=== PATIENT | female | born 1945 | race Caucasian/White ===

== ENCOUNTER 2021-12-25 06:36 | Observation (INO) | payer OTHER ==
[2021-12-20 09:28] LABS: Absolute Lymphocytes (CBC) 1.1 K/uL (0.7-4.9); Hematocrit 41.8 % (36.0-45.0); Lymphocytes % 22.6 % (15.3-44.8); MPV 10.5 fL (7.6-11.3); RBC Red Blood Cell Count 4.64 M/uL (3.86-4.86)
[2021-12-20 09:35] LABS: Protime INR 1.07
--- NOTE | 2021-12-20 09:59 | RAD REPORT ---
EXAM DESCRIPTION: RAD - Chest Pa And Lat (2 Views) - 12/20/2021 9:21 am CLINICAL HISTORY: Pre Op pending knee arthroplasty Chest pain. COMPARISON: No comparisons FINDINGS: The lungs are clear. The heart is normal in size. No displaced fractures. Large hiatal her vamshi.
[2021-12-25] MEDS ORDERED: Ringers Lactate 1,000 ML IV ONE ×2 (06:44→09:59)
[2021-12-25] MEDS ORDERED: BUPIVACAINE 0.25% PF 10 ML VIAL ONE (06:45)
[2021-12-25] MEDS ORDERED: MIDAZOLAM HCL 2 MG/2 ML INJ ONE (06:46)
[2021-12-25] MEDS ORDERED: LIDOCAINE 1% MPF 5 ML VIAL ONE (06:46)
[2021-12-25] MEDS ORDERED: FENTANYL CITR 100 MCG/2 ML ONE ×2 (06:46→08:55)
[2021-12-25] MEDS ORDERED: dexAMETHasone 4 MG/ML VIAL ONE (06:46)
[2021-12-25] MEDS ORDERED: LIDOCAINE 2% MPF 5 ML VIAL ONE (07:06)
[2021-12-25] MEDS ORDERED: propofoL 200 MG/20 ML VIAL IV ONE (07:06)
[2021-12-25] MEDS ORDERED: ACETAMINOPHEN 500 MG TAB ONE (07:10)
[2021-12-25] MEDS ORDERED: CELECOXIB 100 MG CAPSULE ONE (07:10)
[2021-12-25] MEDS ORDERED: VANCOMYCIN 1 GM in NA CHLORIDE 0.9% 250 ML IV ONE (08:00)
[2021-12-25] MEDS ORDERED: HYDROMORPHONE HCL 1 MG/ML INJ ONE (08:20)
[2021-12-25] MEDS ORDERED: KETAMINE HCL 500 MG/5 ML VIAL ONE (08:28)
[2021-12-25] MEDS ORDERED: ONDANSETRON 4 MG/2 ML VIAL ONE (08:30)
[2021-12-25] MEDS ORDERED: EPHEDRINE SULF 50 MG/ML VIAL ONE (08:33)
[2021-12-25] MEDS ORDERED: TRANEXAMIC ACID 1,000 MG in NA CHLORIDE 0.9% 50 ML IV ONE (09:00)
--- NOTE | 2021-12-25 10:45 | P.BOP ---
Preoperative diagnosis: left knee osteoarthritis Postoperative diagnosis: same Primary procedure: left total knee arthroplasty Customer Support Professional: NONE,NONE Estimated blood loss: 20 cc Specimen: left knee bone remnants Findings: see dictation Anesthesia: General Complications: None Implants: [employer] Roseann Persona 10 CR Narrow Femur, E tibia, 32 patella, 10 CR poly Fluids & blood products: per anesthesia record; TT: 71 mins @ 300 mmHg Transferred to: Recovery Room Condition: Good
[2021-12-25] MEDS ORDERED: SIMETHICONE 80 MG TAB PO PRN (10:46)
[2021-12-25] MEDS ORDERED: DOCUSATE NA 100 MG CAP PO PRN (10:47)
[2021-12-25] MEDS ORDERED: ONDANSETRON 4 MG/2 ML VIAL IV PRN (10:47)
[2021-12-25] MEDS ORDERED: MORPHINE 2 MG/ML SYR IV PRN (10:47)
[2021-12-25] MEDS ORDERED: TRAMADOL HCL 50 MG TAB PO PRN (10:52)
[2021-12-25 11:10] LABS: Hematocrit 34.1 % (36.0-45.0)
--- NOTE | 2021-12-25 11:24 | RAD REPORT ---
EXAM DESCRIPTION: RAD - Knee Left 2 View - 12/25/2021 11:11 am CLINICAL HISTORY: Left knee surgery FINDINGS: Postoperative changes a left knee arthroplasty. Prosthesis is in good position. No fracture or dislocation
--- OUTSIDE RECORDS SUMMARY | 2021-12-25 11:50 | XMS REPORT | Continuity of Care Document ---
:1945 Author Organization [facility] t Address [address] [place] [address] [address]. Trejo [address] [place] [address] Care Team Providers Name Role Phone Moises Henderson DO Primary Care Physician Madison Henderson Attending Clinician Unavailable SINTIA Attending Clinician Unavailable Viet Torrez Attending Clinician Unavailable RYAN DELA CRUZ Attending Clinician Unavailable Nurse, Pob Immunization Attending Clinician Unavailable Ryan Dela Cruz DO Attending Clinician Madison TURK Attending Clinician Unavailable Doctor Unassigned, Name Attending Clinician Unavailable Francisco Stubbs MD Attending Clinician Madison Henderson Admitting Clinician Unavailable Viet Torrez Admitting Clinician Unavailable Physician, Primary or Family Admitting Clinician Unavailabl e Payers Payer Name Policy Type Policy Number Effective Date Expiration Date S cortney MEDICARE PART A \T\ [id number] B - MEDICARE MEDIGAP-GENERIC - [id number] GENERIC PAYOR MEDICARE SUPPLEMENT [id number] MEDICARE PART A \T\ [id number] 2009 B 00:00:00 COMMERCIAL [id number] 2014 NON-CONTRACT 00:00:00 GENERIC Problems Condition Condition Condition Status Onset Resolution Last Treating Co mments Source Name Details Category Date Date Treatment Clinician Date 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 of 05 ity of lower lower 00:00: [place] extremity extremity 00 Medi jose Branch Osteoarthr Osteoarthr Disease Active 2018-11 U nivers itis itis 05 ity of 00:00: [place] 00 Medical Branch Allergies, Adverse Reactions, Alerts Allergy Allergy Status Severity Reaction(s) Onset Inactive Treating Comm ents Source Name Type Date Date Clinician Nitrofur Propensi Active Other (See Ba ylor antoin ty to Comments) 2-10 [place] Mac[place]ry adverse 00:00: of stal reaction 00 Medicin s to e drug Nitrofur Propensi Active 2016-11 Method i antoin ty to 0-23 [facility] [place] adverse 00:00: Hospita stal reaction 00 l s to drug Penicill Propensi Active 2016-11 Method i ins ty to 0-23 st adverse 00:00: Hospita reaction 00 l s to drug Sulfa Propensi Active 2016-11 Methodi (Sulfona ty to 0-23 st mide adverse 00:00: Hospita Antibiot reaction 00 l ics) s to drug NITROFUR DRUG Active Hives Univers ANTOIN INGREDI 5-31 ity of MACROCRY 00:00: [place] STALLINE 00 Medical Branch PENICILL Drug Active Hives Univers INS Class 5-31 ity of 00:00: [place] 00 Medical Branch SULFA Drug Active Hives Univers (SULFONA Class 5-31 ity of MIDE 00:00: [place] ANTIBIOT 00 Medical ICS) Branch Nitrofur Propensi Active Hives Univer s antoin ty to 5-31 ity of Macrocry adverse 00:00: [place] stalline reaction 00 Medica l s Branch Penicill Propensi Active Hives Univer s ins ty to 5-31 ity of adverse 00:00: [place] reaction 00 Medical s Branch Sulfa Propensi Active Hives Univers (Sulfona ty to 5-31 ity of mide adverse 00:00: [place] Antibiot reaction 00 Medica l ics) s Branch Penicill Propensi Active Hives [facility] ins ty to 04-08 [place] adverse 00:00: of reaction 00 Medicin s to e drug Sulfa Propensi Active Hives [facility] Antibiot ty to 04-08 [place] ics adverse 00:00: of reaction 00 Medicin s to e drug Macrodan Adverse Active Info Not [facility] Reaction Available [facility] Family History Family Member Diagnosis Comments Start Date Stop Date Source Natural father Heart disease [facility] Natural mother Stroke [facility] Social History Social Habit Start Date Stop Date Quantity Comments Source Exposure to Yes [facility] Cjg e SARS-CoV-2 (event) of Med icine History [facility] ge Alcohol Comment of Medici ne History [facility] ge Alcohol Std Drinks of Med icine History [facility] Alcohol Binge of Medicine Alcohol intake 2021-11-27 2021-11-27 Current drinker [facility] 00:00:00 00:00:00 of alcohol of Medicine (finding) Tobacco use and 2020-03-21 2020-03-21 Smokeless tobacco [facility] exposure 00:00:00 00:00:00 non-user of Medicine History [facility] 2020-03-21 2020-03-21 3 [facility] Alcohol Frequency 00:00:00 00:00:00 of Medi cine Cigarettes smoked 2017-08-31 2017-08-31 [facility] current (pack per 00:00:00 00:00:00 Hospita l day) - Reported Cigarette 2017-08-31 2017-08-31 [facility] pack-years 00:00:00 00:00:00 Hospital Sex Assigned At [birth year] [facility] Co [facility]lege 00:00:00 00:00:00 of Medicine Smoking Status Start Date Stop Date Source Never smoked tobacco [facility] ege of [facility] Current every day smoker 2017-08-31 00:00:00 Met [facility] Medications Ordered Filled Start Stop Current Ordering Indication Dosage Frequency Signature Comments Components Source Medication Medication Date Date Medication? Clinician (SIG) Name Name Cyclobenzap 2021- No Take by Jules carmonae HCl 11-27 mouth. College (FLEXERIL 09:56: 00:00 of OR) 12 :00 Medicin e cyclobenzap 2021- No 10mg Take 10 mg Kody stallworth 11-27 by mouth 3 College (FLEXERIL) 09:55: 00:00 times of 10 MG 42 :00 daily as Medicin tablet needed for e Muscle spasms. Magnesium 0 Yes 250mg 250 mg. [facility] 400 MG CAPS 11-27 College 09:06: of 45 Medicin e aspirin EC 0 Yes 81mg Take 81 mg B aylor 81 MG 11-27 by mouth. [place] tablet 09:06: of 45 Medicin e Cyanocobala 2021-0 Yes 1 tablet Ba ylor min 11-27 [place] (VITAMIN 09:06: of B12) 1000 45 Medicin MCG TBCR e Probiotic 0 Yes Take by [facility] Product 11-27 mouth. [place] (PROBIOTIC 09:06: of PEARLS OR) 45 Medicin e Calcium 0 Yes Take by Kody Carbonate-[facility] 11-27 [facility] 09:06: of (CALCIUM 45 Medicin 600+D3 PLUS e MINERALS OR) nortriptyli Yes [id number] 25mg Take 1 [facility] ne 11-27 capsule by [place] (PAMELOR) 00:00: mouth of 25 MG 00 nightly. Medicin capsule e Probiotic 2019-0 Yes Take by [facility] Product 03-21 mouth. [place] (PROBIOTIC 18:51: of PEARLS OR) 33 Medicin e Calcium 2019-0 Yes Take by [facility] Carbonate-V 03-21 [facility]. [facility] 18:51: of (CALCIUM 33 Medicin 600+D3 PLUS e MINERALS OR) Magnesium 2020-0 Yes 250mg 250 mg. [facility] ([facility] TRIPLE 03-21 [place] MAGNESIUM 18:50: of COMPLEX) 29 Medicin 400 MG CAPS e aspirin EC 2019-0 Yes 81mg Take 81 mg B aylor 81 MG 03-21 by mouth. [place] tablet 18:50: of 29 Medicin e Cyanocobala 2020-0 Yes 1 tablet Ba ylor min 03-21 [place] (VITAMIN 18:50: of B12) 1000 29 Medicin MCG TBCR e Cyclobenzap 2020-0 Yes Take by Ba ylor rine HCl 03-21 mouth. [place] (FLEXERIL 18:50: of OR) 29 Medicin e cyclobenzap 2020-0 Yes 10mg Take 10 mg [facility] rine -13 by mouth 3 [place] (FLEXERIL) 18:50: times of 10 MG 29 daily as Medicin tablet needed for e Muscle spasms. alprazolam 2020-0 Yes [id number] .5mg Take 1 Tab Kody (XANAX) 0.5 5-13 by mouth [facility] ege MG tablet 00:00: See Admin of 00 Instructio Medicin ns. 1 hour e prior to MRI. May repeat at start of MRI if still claustroph obic. alprazolam 2020-0 2021- No [id number] .5mg Take 1 Tab Kody (XANAX) 0.5 5-13 -19 by mouth Col lege MG tablet 00:00: 00:00 See Admin of 00 :00 Instructio Medicin ns. 1 hour e prior to MRI. May repeat at start of MRI if still claustroph obic. losartan-hy 2020-0 Yes daily. [facility] drochloroth 4- [place] iazide 00:00: of (HYZAAR) 00 Medicin 100-25 MG e per tablet losartan-hy 2020-0 Yes daily. [facility] drochloroth 4- [place] iazide 00:00: of (HYZAAR) 00 Medicin 100-25 MG e per tablet Mesalamine 2020-0 Yes [facility] 1.2 g TBEC 4-19 College 00:00: of 00 Medicin e Mesalamine 2020-0 Yes 4{tbl} 4 Tablets [facility] 1.2 g TBEC 19 daily. College 00:00: of 00 Medicin e DEXILANT 60 2020-0 Yes Kody MG CPDR 4-12 College 00:00: of 00 Medicin e DEXILANT 60 2020-0 Yes [facility] MG CPDR 4-12 College 00:00: of 00 Medicin e simvastatin 2020-0 Yes daily. [facility] (ZOCOR) 40 3-15 College MG tablet 00:00: of 00 Medicin e simvastatin 2020-0 Yes daily. [facility] (ZOCOR) 40 3-15 College MG tablet 00:00: of 00 Medicin e potassium 2020-0 Yes [facility] chloride SA 2-24 College (K-DUR, 00:00: of KLOR-CON Medicin M20) 20 MEQ e tablet potassium 2020-0 Yes [facility] chloride SA 2-24 College (K-DUR, 00:00: of KLOR-CON Medicin M20) 20 MEQ e tablet Tramadol Tramadol 2018-11 Yes Anthony [address] HCl HCl 12-04 [facility] l Outpati ent Clinics mesalamine 2018-11 Yes 1200mg Take 1,200 Univers 1.2 gram EC 1-05 mg by ity of tablet 14:50: mouth [place] 06 daily with Medical breakfast. Branch mesalamine 2018-11 Yes 1200mg Take 1,200 Univers 1.2 gram EC 1-05 mg by ity of tablet 14:50: mouth [place] 06 daily with Medical breakfast. Branch mesalamine 2016-11 Yes Methodi (LIALDA) 0-16 st 1.2 gram EC 00:00: Hospit a tablet 00 l budesonide 2016-11 Yes [facility] EC 0-06 st (ENTOCORT 00:00: Hospita EC) 3 mg 24 00 l hr capsule DEXILANT 60 Yes Method i mg capsule 08-04 st 00:00: Hospita 00 l doxazosin Yes take one [facility] (CARDURA) 8 9-18 tablet by Col lege MG tablet 00:00: mouth of 00 daily Medicin e losartan-hy Yes Method i drochloroth 918 st iazide 00:00: Hospita (HYZAAR) 00 l 100-25 mg per tablet doxazosin Yes take one [facility] (CARDURA) 8 9-18 tablet by Col lege MG tablet 00:00: mouth of 00 daily Medicin e doxazosin Yes Methodi (CARDURA) 8 9-18 st MG tablet 00:00: Hospita 00 l losartan-hy Yes 1{tbl} Take 1 Un [place]anto drochloroth 5-31 tablet by ity of iazide 23:05: mouth [place] 100-25 mg 26 daily. Medical per tablet Branch simvastatin Yes 40mg Take 40 mg Univers 40 mg 5-31 by mouth ity of tablet 23:05: at [place] [address] bedtime. Medical Branch aspirin 81 Yes 81mg Take 81 mg U nivers mg chewable 5-31 by mouth ity of tablet 23:05: daily. [place] [facility] [place]-3-DHA Yes Take by Un [place]anto -EPA-Fish 5-31 mouth. ity of Oil (FISH 23:05: [place] OIL) 1,000 26 Medical mg (120 Branch mg-180 mg) Cap CALCIUM Yes Take by [facility] s CARBONATE/V 5-31 mouth. ity of ITAMIN D3 23:05: [place] (VITAMIN 26 Medical D-3 ORAL) Branch doxazosin 8 Yes 8mg Take 8 mg U nivers mg tablet 5-31 by mouth ity of 23:05: daily. [place] [address] Medical Branch Dexlansopra Yes Take by Un [facility]anto zole 5-31 mouth. ity of (DEXILANT) 23:05: [place] 60 mg 26 Medical capsule Branch cyclobenzap Yes 10mg Take 10 mg Univers rine 10 mg 5-31 by mouth 3 ity of tablet 23:05: (three) [place] 26 times Medical daily. Branch POTASSIUM Yes Take by [facility] ers CHLORIDE - mouth. ity of (KLOR-CON 23:05: [place] ORAL) Medical Branch losartan-hy Yes 1{tbl} Take 1 Un [place] drochloroth 5-31 tablet by ity of iazide 23:05: mouth [place] 100-25 mg 26 daily. Medical per tablet Branch simvastatin Yes 40mg Take 40 mg Univers 40 mg 5-31 by mouth ity of tablet 23:05: at [place] [address] bedtime. Medical Branch aspirin 81 Yes 81mg Take 81 mg U nivers mg chewable 5-31 by mouth ity of tablet 23:05: daily. [place] [address] Medical Branch [place]-3-DHA Yes Take by Un [place]anto -EPA-Fish - mouth. ity of Oil (FISH 23:05: [place] OIL) 1,000 26 Medical mg (120 Branch mg-180 mg) Cap CALCIUM Yes Take by [facility] s CARBONATE/V 5-31 mouth. ity of ITAMIN D3 23:05: [place] (VITAMIN 26 Medical D-3 ORAL) Branch doxazosin 8 Yes 8mg Take 8 mg U nivers mg tablet 5-31 by mouth ity of 23:05: daily. [place] [address] Medical Branch Dexlansopra Yes Take by Un [place]anto zole 5-31 mouth. ity of (DEXILANT) 23:05: [place] 60 mg 26 Medical capsule Branch cyclobenzap Yes 10mg Take 10 mg Univers rine 10 mg 5-31 by mouth 3 ity of tablet 23:05: (three) [place] 26 times Medical daily. Branch POTASSIUM 2017-0 Yes Take by Univ ers CHLORIDE 5-31 mouth. ity of (KLOR-CON 23:05: [place] ORAL) 26 Medical Branch Lialda Lialda Yes Anthony [address] [facility]ics Cyclobenzap Cyclobenzap Yes Anthony [address] rine HCl rine HCl [facility] as needed [facility] ent Clinics Dexilant Dexilant Yes Anthony TAKE ONE C [facility] CAPSULE BY [facility] DAILY l [facility] Clinics Vitamin D Vitamin D Yes Anthony [address] [facility]ics Aspir-81 Aspir-81 Yes Anthony [address] [facility]ics Doxazosin Doxazosin Yes Anthony take one [facility] Mesylate Mesylate [place] tablet by L ukes - mouth Memoria daily l [facility] Clinics Probiotic Probiotic Yes Anthony not [facility] defined [facility] Magnesium Magnesium Yes Anthony [address] [facility] [place] with a [facility] - meal Memoria l [facility] Clinics Simvastatin Simvastatin Yes Anthony [address] [facility] in the [facility] evening Memoria l [facility] Clinics Hyzaar Hyzaar Yes Anthony 1 tablet [facility]ics Potassium Potassium Yes Anthony TAKE ONE [facility] Chloride ER Chloride ER [place] TABLET BY [facility] M[facility]TH Memoria TWICE A l DAY [facility] Clinics Vitamin B12 Vitamin B12 Yes Anthony [address] [facility] Doxazosin Doxazosin Yes Anthony TAKE ONE [facility] Mesylate Mesylate [place] TABLET BY L ukes - MOUTH Memoria DAILY l [facility] ent Clinics Klor-Con Klor-Con 2019- No Anthony TAKE ONE [facility] M20 M20 08-27 [place] TABLET BY [facility]ukes - 00:00 MOUTH Memoria :00 TWICE A l DAY [facility] ent Clinics Immunizations Ordered Filled Immunization Date Status Comments Sour e Immunization Name Name SARS-COV-2 COVID-19 2021-07-08 Completed Unive rsity of MODERNA VACCINE 00:00:00 [facility] ica Branch SARS-COV-2 COVID-19 2020-12-03 Completed Unive rsity of MODERNA VACCINE 00:00:00 [facility] SARS-COV-2 COVID-19 2020-11-05 Completed Unive rsity of MODERNA VACCINE 00:00:00 [facility] Vital Signs Vital Name Observation Time Observation Value Comments Source Systolic blood 2021-11-27 15:06:00 138 mm[Hg] [facility] Medicine Diastolic blood 2021-11-27 15:06:00 82 mm[Hg] [facility] Medicine Heart rate 2021-11-27 15:06:00 76 /min [facility] ollege of [facility] Body temperature 2021-11-27 15:06:00 36.28 [facility]idi [facility] Respiratory rate 2021-11-27 15:06:00 16 /min [facility] Body height 2021-11-27 15:06:00 [facility] Body weight 2021-11-27 15:06:00 84.823 [facility] BMI 2021-11-27 15:06:00 31.12 kg/m2 [facility] Systolic blood 2020-03-21 17:58:00 138 mm[Hg] [facility] Medicine Diastolic blood 2020-03-21 17:58:00 80 mm[Hg] [facility] Medicine Heart rate 2020-03-21 17:58:00 99 /min [facility] ollege of Medicine Body temperature 2020-03-21 17:58:00 36.89 Heidi [facility] Body height 2020-03-21 17:58:00 162.6 [facility] Body weight 2020-03-21 17:58:00 92.08 [facility] BMI 2020-03-21 17:58:00 34.84 kg/m2 [facility] Systolic blood 2020-03-21 17:58:00 138 mm[Hg] [facility] Medicine Diastolic blood 2020-03-21 17:58:00 80 mm[Hg] [facility] Medicine Heart rate 2020-03-21 17:58:00 99 /min [facility] Body temperature 2020-03-21 17:58:00 36.89 Heidi [facility] Body height 2020-03-21 17:58:00 162.6 cm [facility] Body weight 2020-03-21 17:58:00 92.08 kg [facility] BMI 2020-03-21 17:58:00 34.84 kg/m2 [facility] Procedures Procedure Date / Time Performing Clinician Source Performed SARS-COV-2 COVID-19 2021-07-08 13:37:09 Doctor Unassigned, No [facility] [place] VACCINE,0.5ML,IM Name Medical Branch (MODERNA) AUTHORIZATION FOR 2020-04-04 05:01:00 Doctor Unassigned, No Univ ersity of [place] RELEASE OF [facility] Name Medical Branch Plan of Care Planned Activity Planned Date Details Comments Source Future Scheduled 2021-11-27 PANCREATIC ELASTASE Ordered: [place] [facility] Test 10:02:12 - FECAL [code = 11/27/2021 of Medicine 89898-3] Future Scheduled 2021-11-27 TETANUS SHOT [facility] Vianney ege Test 09:06:01 (ADULT) [code = of Medicine TETANUS SHOT (ADULT)] Future Scheduled 2021-11-27 Hepatitis C [facility] Vianney ege Test 09:06:01 screening of Medicine (procedure) [code = 546207357] Future Scheduled 2021-11-27 ZOSTER VACCINE (1 [facility] College Test 09:06:01 of 2) [code = of Medicine ZOSTER VACCINE (1 of 2)] Future Scheduled 2021-11-27 FALL SCREEN [code = [facility] Test 09:06:01 FALL SCREEN] of Medicine Future Scheduled 2021-11-27 Screening for Kody Col lege Test 09:06:01 osteoporosis of Medicine (procedure) [code = 493721453] Future Scheduled 2021-11-27 Pneumococcal 65+ (1 [facility] Test 09:06:01 of 1 - PPSV23) of Medicine [code = Pneumococcal 65+ (1 of 1 - PPSV23)] Future Scheduled 2021-11-27 [address] UP PLAN [facility] College Test 09:06:01 [code = BMI FOLLOW of Medici ne UP PLAN] Future Scheduled 2021-11-27 FLU VACCINE > 6 [facility] C ollege Test 09:06:01 MONTHS [code = FLU of Medici ne VACCINE > 6 MONTHS] Future Scheduled 2021-11-27 MEDICARE AWV [facility] Vianney ege Test 09:06:01 (Initial) [code = of Medicin e MEDICARE AWV (Initial)] Future Scheduled COVID-[address] Test (1) [code = Hospital COVID-19 VACCINE (1)] Future Scheduled COLONOSCOPY [facility] Test SCREENING [code = Hospital COLONOSCOPY SCREENING] Future Scheduled COLON CANCER [facility] Vianney ege Test SCREENING: of Medicine COLONOSCOPY [code = COLON CANCER SCREENING: COLONOSCOPY] Future Scheduled MAMMOGRAM ANNUAL [facility] Test [code = MAMMOGRAM of Medicin e ANNUAL] Future Scheduled TETANUS SHOT [facility] ege Test (ADULT) [code = of Medicine TETANUS SHOT (ADULT)] Future Scheduled MEDICARE AWV [facility] V[facility]ney ege Test (Initial) [code = of Medicin e MEDICARE AWV (Initial)] Future Scheduled FALL SCREEN [code = [facility] Test FALL SCREEN] of Medicine Future Scheduled OSTEOPOROSIS [facility] Vianney ege Test SCREENING [code = of Medicin e OSTEOPOROSIS SCREENING] Future Scheduled PNEUMOVAX >=65 [facility] Co llege Test (PPSV23) [code = of Medicine PNEUMOVAX >=65 (PPSV23)] Future Scheduled SHINGLES VACCINES Method ist Test (#1) [code = Hospital SHINGLES VACCINES (#1)] Future Scheduled PREVNAR >= 65 [facility] Col lege Test (PCV13) [code = of Medicine PREVNAR >= 65 (PCV13)] Future Scheduled FLU VACCINE > 6 [facility] C ollege Test MONTHS [code = FLU of Medici ne VACCINE > 6 MONTHS] Future Scheduled BMI FOLLOW UP PLAN [facility] r College Test [code = BMI FOLLOW of Medici ne UP PLAN] Future Scheduled 65+ PNEUMOCOCCAL Methodi [facility] Test VACCINE (1 of 1 - Hospital PPSV23) [code = 65+ PNEUMOCOCCAL VACCINE (1 of 1 - PPSV23)] Future Scheduled INFLUENZA VACCINE Method ist Test [code = INFLUENZA Hospital VACCINE] Future Scheduled MRI LUMBAR SPINE WO 1 Occurrences [facility] Test CONTRAST [code = starting of Medicine 85316-7] 03/21/2020 until 10/21/2020 Encounters Start End Encounter Admission Attending Care Care Encounter Source Date/Time Date/Time Type Type Clinicians Facility Department ID 2021-12-20 [facility] 10:[facility]01 [facility] 2021-12-04 [facility] 14:37:48 [facility] 2021-12-04 [facility] 14:22:07 Anthony [id number] [facility] 2021-12-04 [facility] 13[facility]45:16 Anthony [id number] [facility] 2021-12-04 [facility] 13:20:15 Anthony [id number] [facility] 2021-12-04 [facility] 13:11:58 Anthony [id number] [facility] 2021-12-04 [facility] 11:17[facility]11 Anthony [id number] [facility] 2021-12-23 2021-12-23 amb[facility] [id number] [facility] 2021-11-27 2021-11-27 Office PATRICIO, [facility] [id number] [place] [address] 08:35:54 10:21:23 Visit [facility] [id number] College Y [id number] Medi jef 325 e 2021-10-25 2021-10-25 ambulatory [facility] [id number] [facility] 2021 2021 ambulatory [facility] [id number] [facility] 2021-10-09 2021-10-09 ambulatory [facility] [id number] [facility] 2021-10-08 2021-10-08 ambulatory [facility] [id number] [facility] 2021-10-08 2021-10-08 ambulatory [facility] [id number] [facility] 2021-09-19 2021-09-19 ambulatory [facility] [id number] [facility] 2021-09-03 2021-09-03 ambulatory [facility] [id number] [facility] 2021-08-29 2021-08-29 Outpatient [facility] [id number] [facility] 2021-08-28 2021-08-28 Outpatient [facility] [id number] [facility] 2021-08-28 2021-08-28 Outpatient [facility] [id number] [facility] 2021-07-16 2021-07-16 Outpatient [facility] [id number] [facility] 2021-07-12 2021-07-12 Outpatient ELODIA Torrez [facility] MANJULA [id number] [facility] 08:00:00 08:00:00 Liat [id number] [facility] 2021-07-12 2021-07-12 Outpatient ELODIA Torrez [facility] MANJULA [id number] [facility] 08:00:00 08:00:00 Liat 77 [facility] 2021-07-08 2021-07-08 Outpatient R BELLA [facility] [id number] Univers 11:10:00 11:10:00 VLADIMIR alberto [facility] 2021-07-08 2021-07-08 Imm/Inj Nurse, Adc Pob Immunization [facility] [id number] Univers 08:34:39 08:34:51 Visit Vladimir Dela Cruz [facility] [id number] [facility] [id number] Ben Moody [id number] Ar dical [address] 2021-05-16 2021-05-16 Outpatient [facility] [id number] [facility] 2021-05-07 2021-05-07 Outpatient [facility] [id number] [facility]00 [facility] [facility] 2021-04-17 2021-04-17 Outpatient [facility] [id number] [facility] 2021-04-16 2021-04-16 Outpatient [facility] [id number] [facility] 2021-04-16 2021-04-16 Outpatient [facility] [id number] [facility] 2021-03-20 2021-03-20 Outpatient [facility] [id number] [facility] 2021-02-22 2021-02-22 Outpatient [facility] [id number] [facility] 2021-02-13 2021-02-13 Outpatient [facility] [id number] [facility] 2020-12-13 2020-12-13 Outpatient [facility] [id number] [facility] 2020-12-03 2020-12-03 Outpatient Viet [facility]URK [facility] [id number] Univers 08:30:00 08:30:00 ZAID [id number] [facility] 2020-12-03 2020-12-03 Outpatient Viet TURK [facility] [id number] [facility] 08:30:00 08:30:00 ZAID [facility] 2020-11-05 2020-11-05 Outpatient Viet TURK [facility] [id number] Univers 08:40:00 08:40:00 ZAID [id number] [facility] 2020-11-05 2020-11-05 Outpatient Viet TURK [facility] [id number] Univers 08:40:00 08:40:00 ZAID [facility] 2020-08-13 2020-08-13 Outpatient [facility]MLC [facility] [id number] [facility] 2020-06-08 2020-06-08 Outpatient Shan, [facility] MANJULA [id number] [facility] 12:00:00 12:00:[id number] [place] [address] 2020-04-12 2020-04-12 [facility] [id number] [facility] 15:40:00 15:40:00 [facility] [employer] [facility] l [facility] Out[facility] ent Clinics 2020-04-12 2020-04-12 [facility] [id number] [facility] 10:15:00 10:15:00 [employer] [facility] l Medicine Outpat[facility] ent Clinics 2020-04-12 2020-04-12 [facility] [id number] [facility] 09:45:00 09:45:00 [employer] [facility] l Medicine Outpati ent Clinics 2020-04-04 2020-04-04 Eugene GORE [id number] Univers 00:00:00 00:00:00 Only Unassigned, [place] [id number] ity of [facility] [id number] Jerzy as [id number] [facility] jose 00[address] 2020-03-21 2020-03-21 Office Cal Stubbs [id number] [facility] 12:51:38 12:51:38 Visit Francisco AMBULATOR [id number] Y [id number] 2020-03-21 2020-03-21 Office Cal Stubbs [id number] [place] [address] 12:51:38 12:51:38 Visit Francisco AMBULATOR [id number] College Y [id number] of [id number] [facility] 300 e 2020-01-11 2020-01-11 [facility] [id number] 09:01:00 09:01:00 [place] [employer] [facility] 2020-01-10 2020-01-10 [facility] [id number] [facility] 09:30:00 09:30:00 t [facility] [employer] [facility] ent [facility] 2019-12-19 2019-12-19 [facility] [id number] 08:30:00 08:30:00 t [facility] 2019-10-18 2019-10-18 [facility] [id number] [facility] 15:30:00 15:30:00 [facility] Clinics 2019-10-11 2019-10-11 [facility] [id number] 10:30:00 10:30:00 [facility] Clin[facility] 2019-10-04 2019-10-04 [facility] [id number] [facility] 09:00:00 09:00:00 t [facility] Clinics 2019-09-14 2019-09-14 [facility] [id number] 11:49:00 11:49:00 t [employer] [facility] ent Clinics 2019-09-06 2019-09-06 [facility] [id number] [facility] 10:15:00 10:15:00 t [employer] [facility] ent Clinics 2019-06-09 2019-06-09 [facility] [id number] [facility] 09:45:00 09:45:00 t [place] [employer] [facility] ent Clinics 2019-05-17 2019-05-17 [facility] [id number] [facility] 09:00:00 09:00:00 t [facility] Clinics 2019-05-05 2019-05-05 [facility] [id number] 13:00:00 13:00:00 t [employer] [facility] ent Clinics 2019-03-15 2019-03-15 [facility] [id number] 09:00:00 09:00:00 t [facility] ent Clinics 2019-03-08 2019-03-08 [facility] [id number] 09:00:00 09:00:00 t [facility] ent Clinics 2019-03-01 2019-03-01 [facility] [id number] 09:00:00 09:00:00 t [facility] ent Clinics 2019-01-06 2019-01-06 [facility] [id number] [facility] 13[facility]30:00 13:30:00 t [employer] [facility] ent Clinics 2018-12-09 2018-12-09 [facility] [id number] [facility] 09:00:00 09:00:00 t [facility] Clin[facility] 2018-10-18 2018-10-18 Outpatient Alin Jones [id number] [facility] 13:30:00 13:30:00 t [facility] ent Clinics 2018-06-29 2018-06-29 Outpatient Brazchelsy Ogdent [id number] [facility] 11:00:00 11:00:00 [facility] Clinics 2018-06-22 2018-06-22 Outpatient Alin Ogdent [id number] [facility] 08:30:00 08:30:00 t [facility] Clinics 2018-06-14 2018-06-14 Outpatient Alin Jones [id number] [facility] [facility] 15:30:00 15:30:00 t [facility] Clinics 2018-06-03 2018-06-03 Outpatient Alin Jones [id number] 13:00:00 13:00:00 t [employer] [facility] Medicine [facility] ent Clinics Results This patient has no known results.
[2021-12-25] MEDS: CLINDAMYCIN INJ 600 MG in NA CHLORIDE 0.9% 50 ML IV SCH ×3 (13:17→23:12)
[2021-12-25 14:45] VITALS: O2SAT 98; BMI 31.1
[2021-12-25] MEDS: DOXAZOSIN 2 MG TAB ONE ×2 (17:08→17:13)
[2021-12-25] MEDS: HYDROCODONE/APAP 7.5/325 MG TAB PO PRN ×2 (17:14→21:38)
[2021-12-25] MEDS ORDERED: DOXAZOSIN 4 MG TAB PO SCH (17:30)
--- NOTE | 2021-12-25 18:42 | P.OP ---
Preoperative diagnosis: left knee osteoarthritis Postoperative diagnosis: same Primary procedure: left total knee arthroplasty Secondary procedure: none Anesthesia: general Estimated blood loss: 20 cc Specimen: left knee bone remnants Findings: see dictation Operative Technique: Indication For Procedure: Elba is a 76 year-old male presenting to my clinic with signs, symptoms and x-ray findings consistent with severe left knee osteoarthritis. I discussed with the patient at length risks and benefits associated with operative and nonoperative treatment. She had failed conservative treatment measures and had significant difficulties with ADLs secondary to her pain. We discussed operative treatment and elected to proceed with left total knee arthroplasty. She expressed understanding and elected to proceed with operative treatment. Description Of Procedure: After informed consent was obtained, the patient was identified in the preoperative holding area. The left lower extremity was marked. The patient was then taken to the PACU where he underwent a leftt lower extremity adductor canal block performed by Anesthesia. She was then taken to the operating room, transferred to the operating table in supine fashion, and placed under general anesthesia. The left lower extremity was then prepped and draped in usual sterile fashion. A time-out was initiated. The correct patient and procedure were confirmed and identified. The patient did receive her preoperative prophylactic antibiotics. The left lower extremity was then e xsanguinated and tourniquet was inflated to 300 mmHg. Approximately 15 cm longitudinal incision was made centered over the anterior aspect of the left knee. Dissection was then taken to the extensor mechanism and a medial parapatellar arthrotomy was performed. The patella was everted and dislocated laterally and the knee was flexed in the fat pad. Medial lateral meniscus and ACL were all excised exposing the distal femur. Excess hypertrophic synovium was also excised within the suprapatellar pouch. The patient had an MRI of her left knee preoperatively for surgical planning and creation of cutting blocks. The cutting block was then placed over the distal femur and pins were then placed. The distal femoral cutting block was then placed over the pins. Knee joint was then used to ensure proper depth cut and the distal femur was then cut. The chamfer cutting guide was then placed over the distal end of the femur. Anterior, posterior cuts as well as anterior and posterior chamfer cuts were then made again confirming proper depth of the cut using an Kelton wing. Excess bone remnants were then sent to pathology for further evaluation. Next, attention was taken to the proximal tibia. A tibial jig and tibial cutting block was then placed on proximal aspect of the left tibia and locked into position. Pins were then placed and alignment guide was then used to confirm proper alignment of the cut and then coronal and sagittal planes. Once this was confirmed, the cutting jig was placed over the pins and the proximal tibia was cut. Sizing trays were then selected and size 10 mm spacer was used and there was good overall balance in flexion and extension. Next, the trial implants were then placed using the size 10 standard CR femur and a size E tibia with an 10 mm CR poly. There was overall good range of motion and good stability. The trial implants were then removed. This improved the overall stability of the knee and components. The wound was then irrigated thoroughly with normal saline and the knee was then injected with 30 cc of 0.5% Marcaine both in the posterior capsule and mediallateral gutters as well as quadriceps tendon and periosteum. The tibia was then punched. The femur was drilled. The cement was then prepared on the back table. Cement was then placed first on the tibial surface followed by size F tibia. Excess cement was removed with [place] elevators. Size 10 standard CR femur was then placed on the distal femur after cement was placed on the distal femur. Excess cement was then removed and a size 10 mm CR trial poly was then placed. The knee was held in extension as the cement hardened. Undersurface of the patella was prepared debriding osteophytes using rongeurs as well as osteophytes.. Cement was placed on the undersurface of the patella after it was cut and a size 32 patella was placed. Once the cement was hardened, the knee was ranged, there was good overall stability both in flexion, extension and as well as stability with varus and valgus stresses. Trial poly was then removed and a size 10 mm CR poly was then placed and locked into position. The knee was then ranged again. There was good overall range of motion both for flexion and extension with good stability. The wound was then irrigated again thoroughly with normal saline using pulse lavage. Tourniquet was let down. Hemostasis was achieved using Bovie electrocautery. Extensor mechanism was then approximated using a #1 Vicryl both in interrupted and running fashion. The fascia was then approximated using 0 Vicryl. Subcutaneous tissue was approximated with a 2-0 Vicryl. Skin was approximated using celso. Sterile dressings were applied. The patient was awakened and transferred back in stable condition Complications: None Implants: [employer] Roseann Persona, 10 Narrow CR femur, E tibia, 32 patella, 10 CR poly Fluids & blood products: per anesthesia record; TT: 71 mins @ 300mmHg Transferred to: Recovery Room Condition: Good
[2021-12-25] MEDS ORDERED: NORTRIPTYLINE HCL 25 MG CAP PO SCH (21:00)
[2021-12-25] MEDS ORDERED: ATORVASTATIN 20 MG TAB PO SCH (21:00)
[2021-12-26] MEDS ORDERED: ENOXAPARIN 30 MG/0.3 ML SQ SCH (06:00)
[2021-12-26 06:45] LABS: Hematocrit 33.5 % (36.0-45.0)
[2021-12-26] MEDS ORDERED: CALCIUM CARB 500MG/VIT D 200 IU TAB PO SCH (09:00)
[2021-12-26] MEDS ORDERED: LOSARTAN/HCTZ 50-12.5 PO SCH (09:00)
[2021-12-26] MEDS ORDERED: POTASSIUM CL SA 10 MEQ TAB PO SCH (09:00)
[2021-12-26] MEDS ORDERED: PANTOPRAZOLE 40MG TABLET PO SCH (09:00)
[2021-12-26] MEDS ORDERED: VALACYCLOVIR 500 MG TAB PO SCH (09:00)
[2021-12-26] MEDS ORDERED: CYANOCOBALAMIN 1,000 MCG TAB PO SCH (09:00)
[2021-12-26] MEDS ORDERED: VITAMIN D 1000 UNIT TAB PO SCH (09:00)
[2021-12-26] MEDS ORDERED: HOME MED 1 EA UNK (Losartan/Hydrochlorothiazide [Losartan-Hctz 100-25 Mg Tab] 1 EACH Table PO SCH (09:00)
[2021-12-26] MEDS ORDERED: HOME MED 1 EA UNK (Simvastatin [Simvastatin] 40 MG Tablet) PO SCH (09:00)
[2021-12-26] MEDS ORDERED: HOME MED 1 EA UNK (Calcium Carbonate/Vitamin D3 [Calcium 500-Vit D3 600 Tablet] Tablet) PO SCH (09:00)
[2021-12-26] MEDS ORDERED: MAGNESIUM OXIDE 400 MG TAB PO SCH (09:00)
[2021-12-26] MEDS ORDERED: CELECOXIB 100 MG CAPSULE PO SCH (09:00)
[2021-12-26] MEDS ORDERED: HOME MED 1 EA UNK (Potassium Chloride [Potassium Chloride] 20 MEQ Tablet.Er) PO SCH (09:00)
[2021-12-26 13:33] VITALS: BP 120/69; TEMP 98.2
== END 2021-12-26 12:38 | disposition home health service (06) ==
LOC: OR 06:36 → 2ND 11:47
PROVIDERS: ADMIT Orthopaedic Surgery Sports Medicine; ATTEND Orthopaedic Surgery Sports Medicine
PROC: 0SRD069 Replacement of Left Knee Joint with Oxidized Zirconium on Polyethylene Synthetic Substitute, Cemented, Open Approach (ICD-10-PCS; principal; 2021-12-25 08:00)
DX: M17.12 Unilateral primary osteoarthritis, left knee (principal); I10 Essential (primary) hypertension; E78.2 Mixed hyperlipidemia; G47.00 Insomnia, unspecified; G89.29 Other chronic pain; M54.9 Dorsalgia, unspecified; K21.9 Gastro-esophageal reflux disease without esophagitis; K52.9 Noninfective gastroenteritis and colitis, unspecified; E88.81 Metabolic syndrome and other insulin resistance; K50.90 Crohn's disease, unspecified, without complications; I83.90 Asymptomatic varicose veins of unspecified lower extremity; Z20.822 Contact with and (suspected) exposure to COVID-19; Z79.82 Long term (current) use of aspirin; Z88.0 Allergy status to penicillin; Z88.2 Allergy status to sulfonamides; Z88.3 Allergy status to other anti-infective agents; Z86.010 Personal history of colon polyps; Z90.49 Acquired absence of other specified parts of digestive tract; Z87.891 Personal history of nicotine dependence; Z82.61 Family history of arthritis; Z82.49 Family history of ischemic heart disease and other diseases of the circulatory system; Z82.3 Family history of stroke
CPT/HCPCS: 85025; 80048; 36415 ×3; 85610; 88304; 88311; 85730; 85018 ×2; 85014 ×2; 71046; 73560; 97110 ×2; 97116 ×2; 97139; 97161; 97530 ×2; 94010; 27447; U0002; J2704; J1100; J1650; J2250; J3010 ×2; J3370; J1170; J7120 ×2; J7050; J2405; G0379; G0378 ×2; 88305